=== PATIENT | male | born 1985 | race Caucasian/White ===

== ENCOUNTER 2024-06-01 11:02 | Emergency (ER) | payer SELFPAY ==
[2024-06-01] MEDS ORDERED: Sodium Chloride 0.9% 10 ML Syringe FLUSH PRN (11:32)
[2024-06-01] MEDS: HYDROmorphone 1 MG/ML Syringe IVPUSH ONE (11:42)
[2024-06-01] MEDS: methylPREDNISolone Sodium Succinate 125 MG/2 ML SDV IVPUSH ONE (12:16)
[2024-06-01] MEDS: Metoclopramide 10 MG/2 ML SDV IVPUSH ONE (12:20)
[2024-06-01] MEDS: Ketorolac 30 MG/ML SDV IVPUSH ONE (12:57)
== END 2024-06-01 14:16 | disposition home or self-care (01) ==
LOC: EDBD 11:02 → JD.ED 11:02
DX: M50.122 Cervical disc disorder at C5-C6 level with radiculopathy (principal); F17.210 Nicotine dependence, cigarettes, uncomplicated; Z79.82 Long term (current) use of aspirin; Z79.899 Other long term (current) drug therapy
CPT/HCPCS: 72125; 73030; 96374; 96375; 99284; J1171; J1885; J2765; J2919